=== PATIENT | male | born 1955 | race Caucasian/White ===

== ENCOUNTER 2020-01-14 15:39 | Emergency (ER) | payer MEDICAID ==
[~2020-01-14] VITALS: Ht 171.4 cm; Wt 63.6 kg
[2020-01-14] MEDS ORDERED: normal saline 1000ML IV soln IVB ONE (15:50)
[2020-01-14 16:06] LABS: BASOPHILS # (AUTO) 0.1 X10'3 (0-0.2); BASOPHILS % (AUTO) 1.2 % (0-1); EOSINOPHILS # (AUTO) 1.2 X10'3 (0-0.9); EOSINOPHILS % (AUTO) 13.3 % (0-6); HEMATOCRIT 37.2 % (42.0-52.0); HEMOGLOBIN 12.8 g/dl (14.0-17.9); LYMPHOCYTES # (AUTO) 1.6 X10'3 (1.1-4.8); LYMPHOCYTES % (AUTO) 17.8 % (21-51); MEAN CORPUSCULAR HEMOGLOBIN 31.5 PG (27.0-31.0); MEAN CORPUSCULAR HGB CONC 34.3 g/dL (33.0-36.5); MEAN CORPUSCULAR VOLUME 91.9 FL (78-98); MEAN PLATELET VOLUME 7.9 FL (7.4-10.4); MONOCYTES # (AUTO) 0.9 X10'3 (0-0.9); MONOCYTES % (AUTO) 9.8 % (2-12); NEUTROPHILS # (AUTO) 5.2 X10'3 (1.8-7.7); NEUTROPHILS % (AUTO) 57.9 % (42-75); PLATELET COUNT 330 X10'3 (140-440); RED BLOOD COUNT 4.05 X10'6 (4.70-6.10); RED CELL DISTRIBUTION WIDTH 13.5 % (11.5-14.5)
[2020-01-14 16:14] LABS: ALANINE AMINOTRANSFERASE 12 U/L (12-78); ALBUMIN 3.6 G/DL (3.4-5.0); ALBUMIN/GLOBULIN RATIO 1.1 (1.1-1.5); ALKALINE PHOSPHATASE 79 IU/L (46-116); ANION GAP 9 (8-16); ASPARTATE AMINO TRANSFERASE 11 U/L (10-37); BILIRUBIN,TOTAL 0.3 MG/DL (0.1-1.0); BLOOD UREA NITROGEN 20 MG/DL (7-18); BUN/CREATININE RATIO 21.5 (5.4-32.0); CALCIUM 8.8 MG/DL (8.5-10.1); CHLORIDE 101 MMOL/L (99-107); CREATININE 0.93 MG/DL (0.60-1.10); GLUCOSE 96 MG/DL (70-104); POTASSIUM 3.9 MMOL/L (3.5-5.1); SODIUM 139 MMOL/L (135-145); TOTAL CARBON DIOXIDE 29.1 MMOL/L (24-32); eGFR 82 ML/MIN
[2020-01-14 16:21] LABS: MAGNESIUM 2.1 MG/DL (1.5-2.4)
[2020-01-14 17:04] LABS: CLARITY,URINE CLEAR (Clear); COLOR,URINE YELLOW (Yellow); GLUCOSE, URINE NEGATIVE (Neg); KETONES,URINE NEGATIVE (Neg); LEUKOCYTE ESTERASE ,URINE NEGATIVE (Neg); NITRITES, URINE NEGATIVE (Neg); OCCULT BLOOD,URINE NEGATIVE (Neg); PH,URINE 5.5 (4.8-8.0); PROTEIN,URINE NEGATIVE (Neg); UA COLLECTION TYPE VOIDED; UROBILINOGEN,URINE 0.2 E.U/dL (0.2-1.0)
[2020-01-14 17:17] VITALS: BP 147/76
== END 2020-01-14 17:19 | disposition home or self-care (01) ==
LOC: ER 15:39
DX: R53.1 Weakness (principal); F41.9 Anxiety disorder, unspecified
CPT/HCPCS: 36415; 71045; 80053; 81003; 83735; 83880; 84484; 85025; 93005; 99285; J7030

== ENCOUNTER 2020-05-19 11:50 | Emergency (ER) | payer MEDICAID ==
[~2020-05-19] VITALS: Ht 172.7 cm; Wt 68.2 kg
[2020-05-19] MEDS ORDERED: normal saline 1000ML IV soln IVB ONE (12:35)
[2020-05-19 14:20] LABS: BASOPHILS # (AUTO) 0.1 X10'3 (0-0.2); BASOPHILS % (AUTO) 0.7 % (0-1); EOSINOPHILS # (AUTO) 0.4 X10'3 (0-0.9); EOSINOPHILS % (AUTO) 4.2 % (0-6); HEMOGLOBIN 12.9 g/dl (14.0-17.9); LYMPHOCYTES # (AUTO) 0.9 X10'3 (1.1-4.8); LYMPHOCYTES % (AUTO) 9.9 % (21-51); MEAN CORPUSCULAR HEMOGLOBIN 30.1 PG (27.0-31.0); MEAN CORPUSCULAR HGB CONC 34.9 g/dL (33.0-36.5); MEAN CORPUSCULAR VOLUME 86.2 FL (78-98); MEAN PLATELET VOLUME 7.2 FL (7.4-10.4); MONOCYTES # (AUTO) 1.1 X10'3 (0-0.9); MONOCYTES % (AUTO) 11.7 % (2-12); NEUTROPHILS % (AUTO) 73.5 % (42-75); PLATELET COUNT 298 X10'3 (140-440); RED BLOOD COUNT 4.29 X10'6 (4.70-6.10); RED CELL DISTRIBUTION WIDTH 13.5 % (11.5-14.5); WHITE BLOOD COUNT 9.5 X10'3 (4.5-11.0)
[2020-05-19 14:30] LABS: ALANINE AMINOTRANSFERASE 11 U/L (12-78); ALBUMIN 3.4 G/DL (3.4-5.0); ALKALINE PHOSPHATASE 71 IU/L (46-116); ANION GAP 6 (8-16); ASPARTATE AMINO TRANSFERASE 9 U/L (10-37); BILIRUBIN,TOTAL 0.5 MG/DL (0.1-1.0); BLOOD UREA NITROGEN 12 MG/DL (7-18); BUN/CREATININE RATIO 14.6 (5.4-32.0); CALCIUM 8.4 MG/DL (8.5-10.1); CHLORIDE 96 MMOL/L (99-107); CREATININE 0.82 MG/DL (0.60-1.10); GLUCOSE 96 MG/DL (70-104); POTASSIUM 4.1 MMOL/L (3.5-5.1); SODIUM 130 MMOL/L (135-145); TOTAL CARBON DIOXIDE 27.6 MMOL/L (24-32); TOTAL PROTEIN 6.7 G/DL (6.4-8.2); eGFR > 90 ML/MIN
--- NOTE | 2020-05-19 14:57 | NUR ---
PT'S DAUGHTER CALLS FOR UPDATE:LAVELLE ABURTO AT [phone]. WILL CHECK WITH PT IF IT IS OK TO GIVE OUT HIS INFORMATION.
[2020-05-19] MEDS ORDERED: iohexol 300mg/ml 100ml inj. ONE (14:58)
--- NOTE | 2020-05-19 15:09 | NUR ---
FAMILY CALLED TO NOTIFY US THAT PT HAD A SEIZURE THIS MORINING AND THAT IS WHY HE FELL.
--- NOTE | 2020-05-19 15:20 | NUR ---
PT MO CALLS PTS DAUGHTER FOR MORE INFO. PT VOIDS IN URINAL. TAKEN OUT TO CT FOR SCAN.
--- NOTE | 2020-05-19 15:29 | NUR ---
PT BACK FROM CT.
--- NOTE | 2020-05-19 16:20 | NUR ---
pt sleeping, so s/s discomfort
[2020-05-19] MEDS ORDERED: PANT20TA18 PO (16:55)
[2020-05-19 17:37] VITALS: BP 164/87
== END 2020-05-19 17:38 | disposition home or self-care (01) ==
LOC: ER 11:50
DX: S00.83XA Contusion of other part of head, initial encounter (principal); R22.1 Localized swelling, mass and lump, neck; R42 Dizziness and giddiness; Z79.899 Other long term (current) drug therapy; W19.XXXA Unspecified fall, initial encounter; Y93.89 Activity, other specified; Y92.89 Other specified places as the place of occurrence of the external cause; Y99.8 Other external cause status
CPT/HCPCS: 36415; 70450; 70491; 72125; 80053; 80320; 85025; 93005; 99285; J7030; Q9967

== ENCOUNTER 2020-08-25 10:46 | Inpatient (IN) | payer MEDICAID ==
[~2020-08-25] VITALS: Ht 170.2 cm; Wt 63.6 kg
[~2020-08-25 10:46] MED LIST: PANT20TA18 PO
[2020-08-25] MEDS ORDERED: dexamethasone sod phosphate 10mg/ml inj PO STA (12:29)
[2020-08-25] MEDS ORDERED: morphine 4 MG/ML inj SYRINge IM ONE (13:30)
[2020-08-25 14:00] LABS: BASOPHILS # (AUTO) 0.1 X10'3 (0-0.2); EOSINOPHILS # (AUTO) 0.1 X10'3 (0-0.9); EOSINOPHILS % (AUTO) 1.4 % (0-6); HEMOGLOBIN 13.4 g/dl (14.0-17.9); LYMPHOCYTES # (AUTO) 1.1 X10'3 (1.1-4.8); LYMPHOCYTES % (AUTO) 10.3 % (21-51); MEAN CORPUSCULAR HEMOGLOBIN 28.3 PG (27.0-31.0); MEAN CORPUSCULAR HGB CONC 33.6 g/dL (33.0-36.5); MEAN CORPUSCULAR VOLUME 84.3 FL (78-98); MEAN PLATELET VOLUME 7.3 FL (7.4-10.4); NEUTROPHILS # (AUTO) 8.1 X10'3 (1.8-7.7); NEUTROPHILS % (AUTO) 77.3 % (42-75); PLATELET COUNT 460 X10'3 (140-440); RED BLOOD COUNT 4.74 X10'6 (4.70-6.10); RED CELL DISTRIBUTION WIDTH 14.1 % (11.5-14.5); WHITE BLOOD COUNT 10.5 X10'3 (4.5-11.0)
[2020-08-25 14:18] LABS: ALANINE AMINOTRANSFERASE 10 U/L (12-78); ALBUMIN 3.3 G/DL (3.4-5.0); ALBUMIN/GLOBULIN RATIO 0.7 (1.1-1.5); ALKALINE PHOSPHATASE 93 IU/L (46-116); ANION GAP 6 (8-16); ASPARTATE AMINO TRANSFERASE 17 U/L (10-37); BILIRUBIN,TOTAL 0.4 MG/DL (0.1-1.0); BLOOD UREA NITROGEN 22 MG/DL (7-18); BUN/CREATININE RATIO 21.8 (5.4-32.0); CALCIUM 9.7 MG/DL (8.5-10.1); CHLORIDE 98 MMOL/L (99-107); CREATININE 1.01 MG/DL (0.60-1.10); GLUCOSE 122 MG/DL (70-104); POTASSIUM 5.3 MMOL/L (3.5-5.1); SODIUM 131 MMOL/L (135-145); TOTAL CARBON DIOXIDE 27.5 MMOL/L (24-32); TOTAL PROTEIN 8.1 G/DL (6.4-8.2); eGFR 75 ML/MIN
[2020-08-25] MEDS ORDERED: calcium gluconate inj. 2 GM in normal saline 100ml IV soln 100 ML IV ONE (14:35)
[2020-08-25] MEDS ORDERED: albuterol 2.5 MG/3 ML nebule NEB ONE (14:35)
[2020-08-25] MEDS: CALCIUM GLUC 1gm/50ml NACL,iso 50 ML IV SCH ×2 (14:42→15:42)
--- NOTE | 2020-08-25 14:59 | NUR ---
Melida GAR [phone]
[2020-08-25] MEDS ORDERED: dexamethasone 4mg/ml inj IV ONE (15:50)
[2020-08-25] MEDS ORDERED: insulin regular, human 10 units/0.1 ml syringe IV ONE (16:00)
[2020-08-25] MEDS ORDERED: dextrose 50%-water 50ml dispensing syringe IV ONE (16:00)
[2020-08-25] MEDS ORDERED: insulin regular, human U-100 3ml vial - multi-dose IV ONE (16:00)
--- NOTE | 2020-08-25 16:30 | NUR ---
AT BEDSIDE WITH DR TIERNEY TO DISCUSS PT WISHES, PT STATES THAT HE DOES NOT WISH TO HAVE A FEEDING TUBE, O2, FLUIDS, OR ANY OTHER MEDICATIONS OR TREATMENTS THAT WILL PROLONG HIS LIFE, HE DOES NOT WISH TO HAVE BIOPSIES OF HIS THROAT TO DETERMINE IF HE HAS ANY TREATMENT OPTIONS, NO CT, NO STUDIES AT ALL, HE ONLY WANTS MEDICATIONS FOR PAIN AND COMFORT, NOTHING TO PROLONG HIS LIFE, HE HAS AN EXTENSIVE FAMILY HX OF CANCER, I SPOKE WITH PT BROTHER IN LAW, PT FAMILY IS ON BOARD WITH THE PATIENTS DECISION TO GO FORWARD WITH COMFORT / HOSPICE CARE
--- NOTE | 2020-08-25 16:38 | NUR ---
PER DR TIERNEY, CANCELLED ALL MED ORDERS ON FILE FOR HYPERKALEMIA
--- NOTE | 2020-08-25 16:56 | NUR ---
ELDORADO [phone]
[2020-08-25] MEDS ORDERED: HYDROcodone/acetaminophen 5mg/325mg tablet PO PRN (17:25)
[2020-08-25] MEDS ORDERED: HYDROmorphone inj. 0.5 MG/0.5 ML DISP.SYRIN IV PRN (17:25)
[2020-08-25] MEDS ORDERED: HYDROcodone/acetaminophen 10/325mg tab PO PRN (17:25)
[2020-08-25] MEDS ORDERED: LORazepam 2 mg/ml vial IV PRN (17:25)
[2020-08-25] MEDS ORDERED: morphine 10 MG/5 ML UD oral solution PO PRN (17:25)
[2020-08-25] MEDS ORDERED: acetaminophen 325mg tablet PO PRN (17:25)
[2020-08-25] MEDS ORDERED: morphine 2 MG/ML inj. syringe IV PRN (17:25)
[2020-08-25] MEDS ORDERED: NO HOME MEDS (18:52)
--- NOTE | 2020-08-25 19:53 | NUR ---
Pt resting comfortably, denies pain. Pt only ate a few bites of dinner; he indicated swallowing was difficult but denied blended foods would be better.
[2020-08-25] MEDS ORDERED: dexamethasone 4mg/ml inj IV SCH (20:00)
[2020-08-25] MEDS ORDERED: temazepam 15mg capsule PO PRN (21:00)
--- NOTE | 2020-08-26 02:49 | NUR ---
Pt sleeping soundly. Pt regularly offered urinal, warm blanket, and other comfort measures. Pt denies pain. Pt has not urinated on this shift.
--- NOTE | 2020-08-26 04:40 | NUR ---
pt ambulated to bathroom with cane, then returned to bed.
--- NOTE | 2020-08-26 06:40 | NUR ---
pt sleeping at this time, but arousable. when asked how r u feeling, pt states, "not bad". stridor noted.
[2020-08-26 07:34] VITALS: BP 159/99
[2020-08-26 11:30] VITALS: BP 102/78
[2020-08-26] MEDS: morphine 2 MG/ML inj. syringe IV PRN (12:15)
--- NOTE | 2020-08-26 15:20 | NUR ---
Noted pt has been made DNR w/ comfort care. Will continue to follow. Addendum: 08/26/20 at [address] Amended: Links added.
--- NOTE | 2020-08-26 16:04 | NUR ---
Nutrition Consult: pt remains DNR w/ comfort care. Will continue to monitor. Addendum: 08/26/20 at [address] Amended: Links added.
--- NOTE | 2020-08-26 18:08 | NUR ---
Problems reprioritized. Patient report given, questions answered & plan of care reviewed with ELIZ SCRUGGS.
--- NOTE | 2020-08-26 19:07 | NUR ---
Patient in room [facility]. I have received report from Mark SCRUGGS and had the opportunity to ask questions and assume patient care.
[2020-08-26 19:14] VITALS: BP 122/75
--- NOTE | 2020-08-27 06:15 | NUR ---
Problems reprioritized. Patient report given, questions answered & plan of care reviewed with Mark RN.
--- NOTE | 2020-08-27 06:30 | NUR ---
Patient in room [facility]. I have received report from ELIZ SCRUGGS and had the opportunity to ask questions and assume patient care.
[2020-08-27 08:16] VITALS: BP 110/78
[2020-08-27] MEDS: morphine 2 MG/ML inj. syringe IV PRN (14:45)
--- NOTE | 2020-08-27 18:36 | NUR ---
Problems reprioritized. Patient report given, questions answered & plan of care reviewed with ELIZ SCRUGGS.
[2020-08-27 20:00] VITALS: BP 147/84
--- NOTE | 2020-08-28 06:20 | NUR ---
Problems reprioritized. Patient report given, questions answered & plan of care reviewed with Mark RN.
--- NOTE | 2020-08-28 06:32 | NUR ---
Patient in room [facility]. I have received report from ELIZ SCRUGGS and had the opportunity to ask questions and assume patient care.
[2020-08-28 08:00] VITALS: BP 123/77
--- NOTE | 2020-08-28 10:00 | NUR ---
PATIENT DISCHARGED WITH HOME HOSPICE AT THIS TIME, NO FOLLOW UP OR NEW MEDICATIONS WERE ADDED AT THIS TIME. PATIENT IS TO START HOSPICE TODAY. PATIENT LEFT IN PRIVATE VEHICLE AT DISCHARGE. IV TAKEN OUT AT THIS TIME.
== END 2020-08-28 10:17 | disposition hospice, home (50) | DRG 110 ==
LOC: ER 10:48 → ED HOLD 17:23 → SUR 3N 08-26 07:24
PROVIDERS: ADMIT Family Medicine; ATTEND Family Medicine
DX: C76.0 Malignant neoplasm of head, face and neck (principal); E87.1 Hypo-osmolality and hyponatremia; E87.5 Hyperkalemia; F17.210 Nicotine dependence, cigarettes, uncomplicated; Z51.5 Encounter for palliative care; R62.7 Adult failure to thrive; E46 Unspecified protein-calorie malnutrition; Z66 Do not resuscitate; Z96.651 Presence of right artificial knee joint; F12.90 Cannabis use, unspecified, uncomplicated; Z80.0 Family history of malignant neoplasm of digestive organs; Z68.22 Body mass index [BMI] 22.0-22.9, adult
CPT/HCPCS: 36415; 80053; 82948; 85025; 87081; 93005; 94640; 94760; 96372; 99285; G0378; J2270